=== PATIENT | female | born 1975 | race Caucasian/White ===

== ENCOUNTER 2018-05-06 00:19 | Emergency (ER) | payer MEDICAID ==
[~2018-05-06 00:19] MED LIST: CIPR-214 PO; CYCL10TA29 PO; FENT-88 TD; GLIP-152 PO; INSU100V24 SQ; INSU100V26 SC; KET10 PO; LANI SUBQ; LEV500 PO; LEVI SUBQ; LOR5 PO; MET500 PO; METF-421 PO; NAPR-1043 PO; OND4 PO; ONDA4TAB PO; ONDA4TAB97 PO; OXYC-717 PO; OXYC-865 PO; PER PO; PHEN200T32 PO; PREG300C14 PO; PROM-110 PO; PROM12.546 PO; PROM25SU8 PR; PROM25SU9 RC; SULF-198 PO; TAM4 PO; TAMS0.4C25 PO; TAMS0.4C76 PO; TRAM-420 PO; VENL150C61 PO
--- NOTE | 2018-05-06 00:22 | ER Report ---
History and Physical Time Seen By MD: 00:21 HPI/ROS CHIEF COMPLAINT: Left flank pain, vomiting HISTORY OF PRESENT ILLNESS: 42-year-old female with a history of renal stones in the distant past. She notes onset of pain yesterday morning. His got progressively worse today. She's had vomiting over the last several hours. She describes 10/10 pain in her left flank radiating to her left lower quadrant. She reports hematuria. REVIEW OF SYSTEMS: Respiratory: No cough, no dyspnea. Cardiovascular: No chest pain, no palpitations. Gastrointestinal: As above Musculoskeletal: As above Allergies: Coded Allergies: morphine (Verified Allergy, Mild, ITCHING, IRRITABLE, 05/06/18) prochlorperazine (Verified Allergy, Mild, 05/06/18) Home Meds Active Scripts Ketorolac Tromethamine (KETOROLAC TROMETHAMINE) 10 Mg Tab, 10 MG PO Q6H PRN for PAIN, #15 TAB Prov:KATHARINE LILLY DO 05/06/18 Tramadol Hcl (TRAMADOL HCL) 50 Mg Tablet, 50-100 MG PO Q4-6H PRN for PAIN, #15 MG TAKE ONE TO TWO TABLETS BY MOUTH EVERY FOUR TO SIX HOURS NEEDED Prov:KATHARINE LILLY DO 05/06/18 Promethazine Hcl (PROMETHAZINE HCL) 25 Mg Tablet, 25 MG PO Q8H PRN for NAUSEA/VOMITING, #14 TAB Prov:KATHARINE LILLY DO 05/06/18 Reported Medications Insulin Glargine (LANTUS) 100 Unit/Ml Soln, 10 UNIT SUBQ ACHS, ML 01/06/16 Discontinued Reported Medications Oxycodone Hcl/Acetaminophen (PERCOCET 5-325 MG TABLET) 1 Each Tablet, 1 TAB PO Q4-6H, TAB 06/14/16 Glipizide (GLIPIZIDE) 5 Mg Tablet, 5 MG PO 03/18/16 Insulin Detemir (LEVEMIR) 100 Unit/Ml Injs, 60 UNIT SUBQ DAILY 03/18/16 Pregabalin (LYRICA) 300 Mg Capsule, 150 MG PO BID, CAPSULE 01/06/16 Metformin Hcl (METFORMIN HCL) 1,000 Mg Tablet, 1 TAB PO BID, TAB 01/06/16 Venlafaxine Hcl (EFFEXOR XR) 150 Mg Cap.er.24h, 150 MG PO BID 01/06/16 Insulin Human Regular (Humulin R) 100 U/Ml Vial, 2 U SC SS, 0 Refills SLIDING SCALE QID 02/01/09 Metformin Hcl (Glucophage) 500 Mg Tab, 500 MG PO BIDBS, 0 Refills 02/01/09 Discontinued Scripts Ketorolac Tromethamine (KETOROLAC TROMETHAMINE) 10 Mg Tab, 10 MG PO Q6H PRN for PAIN, #12 TAB Prov:RODNEY JERONIMO MD 03/14/17 Ondansetron Hcl (ZOFRAN) 4 Mg Tablet, 4 MG PO Q6H PRN for NAUSEA/VOMITING, #10 Prov:KATHARINE LILLY DO 06/16/16 Promethazine Hcl (PROMETHAZINE HCL) 25 Mg Supp.rect, 25 MG RC Q8H, #10 SUPP.RECT Prov:RAMSEY COVARRUBIAS DO 06/14/16 Cyclobenzaprine Hcl (CYCLOBENZAPRINE HCL) 10 Mg Tablet, 10 MG PO TID for Muscle Relaxant, #15 TAB Prov:ANAM SHARMA DO 03/18/16 Naproxen Sodium (ALEVE) 220 Mg Tablet, 220 MG PO TID, #30 TAB Prov:ANAM SHARMA DO 03/18/16 Tramadol Hcl (TRAMADOL HCL) 50 Mg Tablet, 50-100 MG PO Q4-6H for PAIN, #30 TAB Prov:ANAM SHARMA DO 03/18/16 Promethazine HCl (Phenergan) 25 Mg Supp.rect, 25 MG [place] Q6H for Nausea, #15 Prov:ANAM SHARMA DO 03/18/16 Promethazine Hcl (PROMETHAZINE HCL) 25 Mg Tablet, 25-50 MG PO Q6H for Nausea, #30 TAB Prov:ANAM SHARMA DO 03/18/16 Past Medical/Surgical History History of renal stones, back surgery Reviewed Nurses Notes: Yes Old Medical Records Reviewed: Yes Hx Smoking: Yes Smoking Status: Current: Every Day Smoker Exposure to Second Hand Smoke?: Yes Hx Substance Use Disorder: No Hx Alcohol Use: Yes Constitutional Vital Sign - Last 24 Hours 05/06/18 05/06/18 05/06/18 05/06/18 00:26 00:27 01:04 01:19 Temp 98.4 Pulse 92 88 115 Resp 16 B/P (MAP) 158/95 (116) 158/95 Pulse Ox 97 95 90 O2 Delivery Room Air 05/06/18 05/06/18 05/06/18 01:24 01:39 01:54 Pulse 99 84 84 Pulse Ox 93 93 94 Intake and Output 05/05/18 05/05/18 05/06/18 14:59 22:59 06:59 Intake Total 850 ml Balance 850 ml Physical Exam Vital signs stable, afebrile, pulse ox normal, moderate distress General Appearance: The patient is alert, has no immediate need for airway protection and no current signs of toxicity., Slightly pale appearing, skin warm and dry HEENT: Pupils equal and round no injection. Oropharynx without redness or exudate, mucous. Membranes are moist Respiratory: Chest is non tender, lungs are clear to auscultation. Cardiac: regular rate and rhythm Gastrointestinal: Abdomen is soft and non tender, no masses, bowel sounds normal., + left CVA tenderness Musculoskeletal: Neck: Neck is supple and non tender. Extremities have full range of motion and are non tender. Skin: No rashes or lesions. DIFFERENTIAL DIAGNOSIS: After history and physical exam differential diagnosis was considered for abdominal pain including but not limited to appendicitis, cholecystitis, gastritis and urinary tract infection. Additionally,flank pain including but not limited to musculoskeletal causes, kidney stone, pyelonephritis, shingles, and intra-abdominal causes such as diverticulitis and appendicitis. Medical Decision Making Data Points Result Diagram: 05/06/18 0110 05/06/18 0110 Laboratory Hematology Test 05/06/18 00:23 05/06/18 01:10 Urine Color Yellow Urine Clarity Slightly-cloudy Urine pH 7.0 pH (4.8-9.5) Urine Specific [place] 1.010 Urine Protein Trace mg/dL (NEGATIVE) Urine Glucose (UA) Negative mg/dL (NEGATIVE) Urine Ketones Negative mg/dL (NEGATIVE) Urine Blood Large (NEGATIVE) Urine Nitrite Negative (NEGATIVE) Urine Bilirubin Negative (NEGATIVE) Urine Urobilinogen 0.2 mg/dL (0.2-1.9) Urine Leukocyte Esterase Negative (NEGATIVE) Urine RBC 31 /HPF (0-2/HPF) Urine WBC 6 /HPF (0-5/HPF) Urine Squamous Epithelial Cells Many /LPF (</=FEW) Urine Bacteria Few /HPF (NONE-FEW) Urine Mucus None /HPF (NONE-FEW) Urine Opiates Screen Positive Urine Barbiturates Screen Negative Ur Tricyclic Antidepressants Screen Negative Urine Phencyclidine Screen Negative Urine Amphetamines Screen Negative Urine Benzodiazepines Screen Negative Urine Cocaine Screen Negative Urine Cannabinoids Screen Negative Red Blood Count 4.47 M/uL (4.17-5.56) Mean Corpuscular Volume 92.1 fL (80.0-96.0) Mean Corpuscular Hemoglobin 31.4 pg (26.0-33.0) Mean Corpuscular Hemoglobin Concent 34.1 g/dL (32.0-36.0) Red Cell Distribution Width 15.0 % (11.5-14.5) Mean Platelet Volume 7.4 fL (7.2-11.1) Neutrophils (%) (Auto) 52.3 % (39.4-72.5) Lymphocytes (%) (Auto) 36.9 % (17.6-49.6) Monocytes (%) (Auto) 8.3 % (4.1-12.4) Eosinophils (%) (Auto) 2.0 % (0.4-6.7) Basophils (%) (Auto) 0.5 % (0.3-1.4) Nucleated RBC Relative Count (auto) 0.0 /100WBC Neutrophils # (Auto) 4.6 K/uL (2.0-7.4) Lymphocytes # (Auto) 3.2 K/uL (1.3-3.6) Monocytes # (Auto) 0.7 K/uL (0.3-1.0) Eosinophils # (Auto) 0.2 K/uL (0.0-0.5) Basophils # (Auto) 0.0 K/uL (0.0-0.1) Nucleated RBC Absolute Count (auto) 0.00 K/uL Sodium Level 141 mmol/L (137-145) Potassium Level 3.3 mmol/L (3.5-5.0) Chloride Level 105 mmol/L (98-107) Carbon Dioxide Level 22 mmol/L (22-31) Blood Urea Nitrogen 5 mg/dl (7-18) Creatinine 0.50 mg/dl (0.52-1.04) Glomerular Filtration Rate Calc > 60.0 Random Glucose 221 mg/dl (75-110) Calcium Level 9.3 mg/dl (8.4-10.2) Total Bilirubin 0.3 mg/dl (0.2-1.3) Aspartate Amino Transf (AST/SGOT) 31 U/L (0-35) Alanine Aminotransferase (ALT/SGPT) 39 U/L (0-56) Alkaline Phosphatase 60 U/L (0-126) Total Protein 6.7 g/dl (6.3-8.2) Albumin 3.9 g/dl (3.5-5.0) Amylase Level 38 U/L (0-110) Lipase 99 U/L (23-300) Chemistry Test 05/06/18 00:23 05/06/18 01:10 Urine Color Yellow Urine Clarity Slightly-cloudy Urine pH 7.0 pH (4.8-9.5) Urine Specific [place] 1.010 Urine Protein Trace mg/dL (NEGATIVE) Urine Glucose (UA) Negative mg/dL (NEGATIVE) Urine Ketones Negative mg/dL (NEGATIVE) Urine Blood Large (NEGATIVE) Urine Nitrite Negative (NEGATIVE) Urine Bilirubin Negative (NEGATIVE) Urine Urobilinogen 0.2 mg/dL (0.2-1.9) Urine Leukocyte Esterase Negative (NEGATIVE) Urine RBC 31 /HPF (0-2/HPF) Urine WBC 6 /HPF (0-5/HPF) Urine Squamous Epithelial Cells Many /LPF (</=FEW) Urine Bacteria Few /HPF (NONE-FEW) Urine Mucus None /HPF (NONE-FEW) Urine Opiates Screen Positive Urine Barbiturates Screen Negative Ur Tricyclic Antidepressants Screen Negative Urine Phencyclidine Screen Negative Urine Amphetamines Screen Negative Urine Benzodiazepines Screen Negative Urine Cocaine Screen Negative Urine Cannabinoids Screen Negative White Blood Count 8.8 k/uL (4.5-11.0) Red Blood Count 4.47 M/uL (4.17-5.56) Hemoglobin 14.0 g/dL (12.0-16.0) Hematocrit 41.1 % (34.0-47.0) Mean Corpuscular Volume 92.1 fL (80.0-96.0) Mean Corpuscular Hemoglobin 31.4 pg (26.0-33.0) Mean Corpuscular Hemoglobin Concent 34.1 g/dL (32.0-36.0) Red Cell Distribution Width 15.0 % (11.5-14.5) Platelet Count 298 K/uL (150-450) Mean Platelet Volume 7.4 fL (7.2-11.1) Neutrophils (%) (Auto) 52.3 % (39.4-72.5) Lymphocytes (%) (Auto) 36.9 % (17.6-49.6) Monocytes (%) (Auto) 8.3 % (4.1-12.4) Eosinophils (%) (Auto) 2.0 % (0.4-6.7) Basophils (%) (Auto) 0.5 % (0.3-1.4) Nucleated RBC Relative Count (auto) 0.0 /100WBC Neutrophils # (Auto) 4.6 K/uL (2.0-7.4) Lymphocytes # (Auto) 3.2 K/uL (1.3-3.6) Monocytes # (Auto) 0.7 K/uL (0.3-1.0) Eosinophils # (Auto) 0.2 K/uL (0.0-0.5) Basophils # (Auto) 0.0 K/uL (0.0-0.1) Nucleated RBC Absolute Count (auto) 0.00 K/uL Glomerular Filtration Rate Calc > 60.0 Calcium Level 9.3 mg/dl (8.4-10.2) Total Bilirubin 0.3 mg/dl (0.2-1.3) Aspartate Amino Transf (AST/SGOT) 31 U/L (0-35) Alanine Aminotransferase (ALT/SGPT) 39 U/L (0-56) Alkaline Phosphatase 60 U/L (0-126) Total Protein 6.7 g/dl (6.3-8.2) Albumin 3.9 g/dl (3.5-5.0) Amylase Level 38 U/L (0-110) Lipase 99 U/L (23-300) Toxicology Test 05/06/18 00:23 Urine Opiates Screen Positive Urine Barbiturates Screen Negative Ur Tricyclic Antidepressants Screen Negative Urine Phencyclidine Screen Negative Urine Amphetamines Screen Negative Urine Benzodiazepines Screen Negative Urine Cocaine Screen Negative Urine Cannabinoids Screen Negative Urinalysis Test 05/06/18 00:23 Urine Color Yellow Urine Clarity Slightly-cloudy Urine pH 7.0 pH (4.8-9.5) Urine Specific [place] 1.010 Urine Protein Trace mg/dL (NEGATIVE) Urine Glucose (UA) Negative mg/dL (NEGATIVE) Urine Ketones Negative mg/dL (NEGATIVE) Urine Blood Large (NEGATIVE) Urine Nitrite Negative (NEGATIVE) Urine Bilirubin Negative (NEGATIVE) Urine Urobilinogen 0.2 mg/dL (0.2-1.9) Urine Leukocyte Esterase Negative (NEGATIVE) Urine RBC 31 /HPF (0-2/HPF) Urine WBC 6 /HPF (0-5/HPF) Urine Squamous Epithelial Cells Many /LPF (</=FEW) Urine Bacteria Few /HPF (NONE-FEW) Urine Mucus None /HPF (NONE-FEW) EKG/Imaging Imaging Results: CT scan of the abdomen and pelvis without contrast was obtained. The results of the study are COMPUTED TOMOGRAPHY ABDOMEN AND PELVIS WITHOUT INTRAVENOUS CONTRAST DATE OF EXAM: 05/06/2018 1:07 AM INDICATION: Left flank pain, history of renal stones. COMPARISON: CT abdomen and pelvis 03/14/2017. TECHNIQUE: Noncontrast abdomen and pelvis CT performed. Sagittal and coronal reconstructions were performed. One of the following dose optimization techniques was utilized in the performance of this exam: Automated exposure control; adjustment of the mA and/or kV according to the patient's size; or use of an iterative reconstruction technique. Specific details can be referenced in the facility's radiology CT exam operational policy. FINDINGS: Lung bases: Calcified granulomas in the left base. Liver: Normal. Gallbladder and bile ducts: Cholecystectomy. Spleen: Normal. Small splenules. Pancreas: Normal. Adrenals: Normal. Kidneys, ureters and bladder: Examination limited by motion artifact. Nonobstructing calculi in the inferior pole of left kidney. There may be an additional nonobstructing calculus in the superior pole of the right kidney, image 60 series 2. No well-demonstrated hydronephrosis or hydroureter. Urinary bladder is unremarkable. Retroperitoneum and aorta: Normal. GI tract, mesentery and peritoneum: Nonacute. Appendectomy. Umbilical hernia repair. Uterus and adnexa: IUD in place, otherwise unremarkable. Bones and soft tissues: No acute abnormality or suspicious lesion. L3-L5 fusion. IMPRESSION: Examination limited by motion artifact. Nonobstructing left renal calculi and possible nonobstructing right renal calculus. The study was read by the radiologist. I viewed the images myself on the PACS system. ED Course/Re-evaluation Clinical Indication for ER IV: Hydration, IV Access ED Course Patient was admitted to an examination room. H&P was done. The differential diagnoses was considered. On clinical examination the patient has findings and doesn't patient consistent with left renal colic. Patient's treated with IV fluid hydration, Zofran, Phenergan, Benadryl, Toradol, Dilaudid 0.5 mg IV. Patient reports feeling better. A CT scan of her abdomen and pelvis without contrast shows no obvious obstructing stones. A urinary tox screen was performed before patient was administered any medication. Her urinalysis was positive for opiates. There is a stone in the left kidney. She is discharged home on tramadol and Zofran. Advised to follow-up with Dr. Abdalla. Decision to Disposition Date: May 06, 2018 Decision to Disposition Time: 02:09 Depart Departure Latest Vital Signs Vital Signs Date Time Temp Pulse Resp B/P (MAP) Pulse Ox O2 Delivery O2 Flow Rate FiO2 05/06/18 01:54 84 94 05/06/18 00:27 98.4 16 158/95 Room Air Impression: Primary Impression: Acute left flank pain Additional Impression: History of renal calculi Condition: Improved Disposition: HOME OR SELF-CARE Referrals: CHASITY ABDALLA MD New Scripts Ketorolac Tromethamine (KETOROLAC TROMETHAMINE) 10 Mg Tab 10 MG PO Q6H PRN for PAIN, #15 TAB Prov: KATHARINE LILLY DO 05/06/18 Tramadol Hcl (TRAMADOL HCL) 50 Mg Tablet 50-100 MG PO Q4-6H PRN for PAIN, #15 MG TAKE ONE TO TWO TABLETS BY MOUTH EVERY FOUR TO SIX HOURS NEEDED Prov: KATHARINE LILLY DO 05/06/18 Promethazine Hcl (PROMETHAZINE HCL) 25 Mg Tablet 25 MG PO Q8H PRN for NAUSEA/VOMITING, #14 TAB Prov: KATHARINE LILLY DO 05/06/18 Patient Instructions: Flank Pain (ED) Additional Instructions: Follow-up with Dr. Abdalla as soon as possible Problem Qualifiers KATHARINE LILLY DO May 06, 2018 00:22
[2018-05-06 00:27] VITALS: BP 158/95
[2018-05-06] MEDS ORDERED: NS(*) 0.9% 1000 ML BAG 1,000 ML IV ONE (00:27)
[2018-05-06] MEDS ORDERED: ONDANSETRON 4 MG/2 ML VIAL IVP ONE (00:30)
[2018-05-06] MEDS ORDERED: PROMETHAZINE 25 MG/ML 1 ML AMP IVP ONE (00:30)
[2018-05-06] MEDS ORDERED: KETOROLAC 30 MG/ML VIAL IVP ONE (00:30)
[2018-05-06] MEDS ORDERED: HYDROMORPHONE HCL 1 MG/ML SYRINGE IVP ONE (00:35)
[2018-05-06] MEDS ORDERED: diphenhydrAMINE 50 MG/ML VIAL IVP ONE (00:35)
[2018-05-06 01:14] LABS: PLATELET COUNT, AUTOMATED 298 K/uL (150-450)
--- NOTE | 2018-05-06 02:00 | RADIOLOGY IMAGING REPORT ---
FACILITY: [facility] PATIENT NAME: Meredith Baig : 1975 MR: [id number] V: [id number] EXAM DATE: ORDERING PHYSICIAN: KATHARINE LILLY TECHNOLOGIST: Location: [facility] Patient: Meredith Baig : 1975 Visit/Account:[id number] Date of Sevice: 05/06/2018 COMPUTED TOMOGRAPHY ABDOMEN AND PELVIS WITHOUT INTRAVENOUS CONTRAST DATE OF EXAM: 05/06/2018 1:07 AM INDICATION: Left flank pain, history of renal stones. COMPARISON: CT abdomen and pelvis 03/14/2017. TECHNIQUE: Noncontrast abdomen and pelvis CT performed. Sagittal and coronal reconstructions were pe rformed. One of the following dose optimization techniques was utilized in the performance of this e xam: Automated exposure control; adjustment of the mA and/or kV according to the patient's size; or u se of an iterative reconstruction technique. Specific details can be referenced in the facility's r adiology CT exam operational policy. FINDINGS: Lung bases: Calcified granulomas in the left base. Liver: Normal. Gallbladder and bile ducts: Cholecystectomy. Spleen: Normal. Small splenules. Pancreas: Normal. Adrenals: Normal. Kidneys, ureters and bladder: Examination limited by motion artifact. Nonobstructing calculi in the inferior pole of left kidney. There may be an additional nonobstructing calculus in the superior po le of the right kidney, image 60 series 2. No well-demonstrated hydronephrosis or hydroureter. Urin fabricio bladder is unremarkable. Retroperitoneum and aorta: Normal. GI tract, mesentery and peritoneum: Nonacute. Appendectomy. Umbilical hernia repair. Uterus and adnexa: IUD in place, otherwise unremarkable. Bones and soft tissues: No acute abnormality or suspicious lesion. L3-L5 fusion. IMPRESSION: Examination limited by motion artifact. Nonobstructing left renal calculi and possible n onobstructing right renal calculus. Report Dictated By: Barber Mas MD at 05/06/2018 1:48 AM Report E-Signed By: Barber Msa MD at 05/06/2018 1:56 AM WSN:[id number]
[2018-05-06] MEDS ORDERED: PROMETHAZINE HCL 25 MG TAB TH 2 TAB/BOTTLE PO ONE (02:10)
[2018-05-06] MEDS ORDERED: traMADol 50 MG TAB TH 2 TAB/BOTTLE PO ONE (02:10)
[2018-05-06] MEDS ORDERED: KET10 PO (02:11)
[2018-05-06] MEDS ORDERED: TRAM-420 PO (02:11)
[2018-05-06] MEDS ORDERED: PROM-110 PO (02:11)
== END 2018-05-06 02:22 | disposition home or self-care (01) ==
LOC: ER 00:30
DX: N20.0 Calculus of kidney (principal)
CPT/HCPCS: 74176; 80305; 81001; 82150; 83690; 85025; 96361; 96374; 96375; 99284; C9399; J1170; J1200; J1885; J2405; J7030; 82040; 82247; 82310; 82374; 82435; 82565; 82947; 84075; 84132; 84155; 84295; 84450; 84460; 84520